=== PATIENT | male | born 1960 | race Caucasian/White ===

== ENCOUNTER 2017-02-03 18:55 | Emergency (ER) | payer MEDICARE, SELFPAY | END 2017-02-03 21:25 | disposition home or self-care (01) | PROVIDERS: Emergency Provider Emergency Medicine; Family Provider Emergency Medicine; Visit Provider Emergency Medicine | DX: K56.7 Ileus, unspecified (principal); I10 Essential (primary) hypertension; Z85.038 Personal history of other malignant neoplasm of large intestine; Z90.49 Acquired absence of other specified parts of digestive tract; F17.210 Nicotine dependence, cigarettes, uncomplicated; Z86.718 Personal history of other venous thrombosis and embolism | CPT/HCPCS: 74176; 80053; 81001; 82150; 83690; 85025; 87086; 96365; 96375; 99284; J2405 ==

== ENCOUNTER → 2017-04-17 13:53 | Outpatient (POV) | payer MEDICARE, SELFPAY ==
[2017-04-17 13:56] VITALS: BP 157/94; PULSE 76; RESP 20; O2SAT 97; BMI 30.1
--- NOTE | 2017-04-17 14:49 | HMH.PMCON ---
Assessment and Plan (1) Neuralgia of abdomen Current visit: Yes Status: Chronic Category: Medical Code(s): M79.2 - Neuralgia and neuritis, unspecified (2) CRPS (complex regional pain syndrome type I) Current visit: Yes Status: Chronic Category: Medical Code(s): G90.50 - Complex regional pain syndrome I, unspecified - Assessment and plan all Dx Assessment and Plan for all problems:: I will start this patient on Lyrica 75 mg 1 p.o. twice daily for a week and then increase him to Lyrica 150 mg 1 p.o. twice daily. If this is cost for definitive to the patient we will start him on gabapentin 300 mg 1 p.o. 3 times daily. I want to see the patient back in 3 weeks. We may potentially be able to do a DRG stimulator for him however we would have to ensure that his wound was healed. The patient's LUCINA #[id number] shows multiple providers giving narcotic medications within the last year including Suboxone. At this time we will not be able to prescribe the patient narcotic medication. I do believe he would benefit from a pain medication to help relieve nerve pain. Dr. Danielle has reviewed this file and agrees. This note was dictated using voice-recognition software may contain errors or omissions HPI - Data of Consult Consult date: 04/17/17 Requesting Physician: Yesi Graham APRN Primary Care Provider: Gray Hernandez MD Family Provider: Gray Hernandez MD - Consult Narrative Reason for consult: Abdominal pain History of present illness: Mr. Dykes is a 57 year old male who presents today to discuss his chronic pain. Patient has had multiple abdominal surgeries. He has abdominal mesh as well as a current open wound in his abdomen. Patient has burning pain in his groin and his abdomen. Patient has been treated for back pain in the past as well. Patient states his pain is burning and shocking in nature. Patient states it is constant. Patient not currently on any medication for nerve pain. Patient has tried gabapentin in the past but does not remember if it worked for him. Patient has not tried Lyrica patient has been on oxycodone and Suboxone in the past. Patient rates his pain a 6 out of 10 today. Patient has been referred to [facility] pain management however he has never made an appointment there and wanted to come somewhere closer. Patient does not have any imaging with him today. CC: Yesi Graham APRN [facility] History I have reviewed the patient's past medical history: Yes Medical History: Reports:: Cancer, Hypertension Denies:: Diabetes Mellitus Type 1, Diabetes Mellitus Type 2 Other Surgeries: Yes: Colon Resection, Hernia Repair Amputation: No Fractures: No - *Social History Educational Level: Attended High School Smoking Status: Current every day smoker Tobacco Type: cigarettes # Packs/Day (cigarettes): 2 Alcohol Intake: current Alcohol Intake Frequency:: a few times a week Substance Use Type: denies use Occupational Status: employed - Psychiatric History Expresses thoughts of harming self/others: None Suicide Plan Description: No Plan *Family Hx:: Diabetes, Hypertension Review of Systems - Review of Systems ROS General: no recent weight change, no fever, no sleep disturbances Respiratory: no cough, no shortness of air, no recurring pulmonary infections Cardiovascular/Peripheral Vascular: No chest pain, No palpitations, no edema, no shortness of breath. Gastrointestinal: History of bowel surgery, abdominal pain Genitourinary: History of prostate cancer Musculoskeletal: Back pain Psychiatric: normal mood/ affect Neurological: [denies weakness in extremities], [denies balance issues] Meds Allergies Allergy/AdvReac Type Severity Reaction Status Date / Time No Known Allergies Allergy Verified 02/23/17 13:20 Objective Vital signs: Pulse Resp BP Pulse Ox 76 20 157/94 97 04/17/17 13:56 04/17/17 13:56 04/17/17
--- NOTE | 2017-04-17 14:52 | P.CONS_ITS ---
Assessment and Plan (1) Neuralgia of abdomen Current visit: Yes Status: Chronic Category: Medical Code(s): M79.2 - Neuralgia and neuritis, unspecified (2) CRPS (complex regional pain syndrome type I) Current visit: Yes Status: Chronic Category: Medical Code(s): G90.50 - Complex regional pain syndrome I, unspecified - Assessment and plan all Dx Assessment and Plan for all problems:: I will start this patient on Lyrica 75 mg 1 p.o. twice daily for a week and then increase him to Lyrica 150 mg 1 p.o. twice daily. If this is cost for definitive to the patient we will start him on gabapentin 300 mg 1 p.o. 3 times daily. I want to see the patient back in 3 weeks. We may potentially be able to do a DRG stimulator for him however we would have to ensure that his wound was healed. The patient's LUCINA #[id number] shows multiple providers giving narcotic medications within the last year including Suboxone. At this time we will not be able to prescribe the patient narcotic medication. I do believe he would benefit from a pain medication to help relieve nerve pain. Dr. Danielle has reviewed this file and agrees. This note was dictated using voice-recognition software may contain errors or omissions HPI - Data of Consult Consult date: 04/17/17 Requesting Physician: Yesi Graham APRN Primary Care Provider: Gray Hernandez MD Family Provider: Gray Hernandez MD - Consult Narrative Reason for consult: Abdominal pain History of present illness: Mr. Dykes is a 57 year old male who presents today to discuss his chronic pain. Patient has had multiple abdominal surgeries. He has abdominal mesh as well as a current open wound in his abdomen. Patient has burning pain in his groin and his abdomen. Patient has been treated for back pain in the past as well. Patient states his pain is burning and shocking in nature. Patient states it is constant. Patient not currently on any medication for nerve pain. Patient has tried gabapentin in the past but does not remember if it worked for him. Patient has not tried Lyrica patient has been on oxycodone and Suboxone in the past. Patient rates his pain a 6 out of 10 today. Patient has been referred to [facility] pain management however he has never made an appointment there and wanted to come somewhere closer. Patient does not have any imaging with him today. CC: Yesi Graham APRN [facility] History I have reviewed the patient's past medical history: Yes Medical History: Reports:: Cancer, Hypertension Denies:: Diabetes Mellitus Type 1, Diabetes Mellitus Type 2 Other Surgeries: Yes: Colon Resection, Hernia Repair Amputation: No Fractures: No - *Social History Educational Level: Attended High School Smoking Status: Current every day smoker Tobacco Type: cigarettes # Packs/Day (cigarettes): 2 Alcohol Intake: current Alcohol Intake Frequency:: a few times a week Substance Use Type: denies use Occupational Status: employed - Psychiatric History Expresses thoughts of harming self/others: None Suicide Plan Description: No Plan *Family Hx:: Diabetes, Hypertension Review of Systems - Review of Systems ROS General: no recent weight change, no fever, no sleep disturbances Respiratory: no cough, no shortness of air, no recurring pulmonary infections Cardiovascular/Peripheral Vascular: No chest pain, No palpitations, no edema, no shortness of breath. Gastrointestinal: History of bowel surgery, abdominal pain Genitourinary: History of prostate cancer Musculoske
--- NOTE | 2017-04-19 08:05 | PC.PHONENOTE ---
04/17/17-called in rx for Lyrica 75mg BID x7 days then Lyrica 150mg BID.2 refills of the Lyrical 150mg BID given
== END ==
PROVIDERS: Family Provider Emergency Medicine; PCP Emergency Medicine; Visit Provider Clinical Nurse Specialist Family Health
DX: R10.9 Unspecified abdominal pain (principal)
CPT/HCPCS: 99202